=== PATIENT | female | born 1990 | race Caucasian/White ===

== ENCOUNTER → 2016-09-12 | Outpatient (CLI) | payer MEDICAID ==
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
== END ==
LOC: FIMAGING 16:44
DX: O09.91 Supervision of high risk pregnancy, unspecified, first trimester (principal); F43.10 Post-traumatic stress disorder, unspecified; Z3A.08 8 weeks gestation of pregnancy